=== PATIENT | male | born 1995 | race Caucasian/White ===

== ENCOUNTER 2022-09-05 14:50 | Emergency (ER) | payer OTHER ==
[~2022-09-05] VITALS: Ht 157.5 cm; Wt 56.8 kg
[2022-09-05] MEDS ORDERED: ONDANSETRON HCL 4 MG/2 ML VIAL IV ONE (15:15)
[2022-09-05] MEDS ORDERED: HYDROmorphone HCL 2 MG/ML VL/or syr IV ONE ×3 (15:15→20:15)
[2022-09-05] MEDS ORDERED: SODIUM CHLORIDE 0.9% 1,000 ML IV ONE (15:15)
[2022-09-05 15:50] LABS: Basophils # (auto) 0 10 ^3/uL (0-0.2); Basophils % (auto) 0.5 % (0.0-2.0); Eosinophils # (auto) 0 10 ^3/uL (0-0.8); Eosinophils % (auto) 0.3 % (0.0-7.0); Hematocrit 43.7 % (41.0-53.0); Hemoglobin 14.6 g/dL (13.5-17.5); Lymphocytes # (auto) 1.4 10 ^3/uL (0.4-5.4); Lymphocytes % (auto) 13.9 % (10.0-50.0); Mean Corpuscular Hemoglobin 28.9 pg (28.0-32.0); Mean Corpuscular Hgb Conc. 33.5 g/dL (32.0-36.0); Mean Corpuscular Volume 86.2 fL (80.0-100.0); Monocytes # (auto) 0.6 10 ^3/uL (0-1.3); Monocytes % (auto) 6.4 % (0.0-12.0); Neutrophils # (auto) 7.9 10 ^3/uL (1.6-8.6); Neutrophils % (auto) 78.9 % (37.0-80.0); Nucleated Red Blood Cells % 0.1 %; Red Blood Cells 5.07 10^6/uL (4.5-5.90); Red Cell Distribution Width 15.3 % (11.8-14.3)
[2022-09-05 15:52] LABS: Albumin 4.2 g/dL (3.4-5.0); Calcium 8.9 mg/dL (8.5-10.1); Potassium 3.7 mmol/L (3.5-5.1)
[2022-09-05 15:56] LABS: BUN/Creatinine Ratio 8.3 (10.0-20.0); Bilirubin, Total 0.4 mg/dL (0.2-1.0); Total Protein 7.7 g/dL (6.4-8.2)
[2022-09-05] MEDS ORDERED: KETOROLAC TROMETH 30 MG/ML 1ML VIAL IV ONE (20:15)
[2022-09-05] MEDS ORDERED: KETOROLAC TROMETH 30 MG/ML 1ML VIAL IM ONE (20:45)
[2022-09-05] MEDS ORDERED: HYDROmorphone HCL 2 MG/ML VL/or syr IM ONE (20:45)
[2022-09-05] MEDS ORDERED: HYDR-4798 PO (21:50)
[2022-09-05 22:25] VITALS: BP 99/58
== END 2022-09-05 22:48 | disposition home or self-care (01) ==
LOC: ER 14:50
DX: S82.202A Unspecified fracture of shaft of left tibia, initial encounter for closed fracture (principal); S92.152A Displaced avulsion fracture (chip fracture) of left talus, initial encounter for closed fracture; S92.412A Displaced fracture of proximal phalanx of left great toe, initial encounter for closed fracture; S92.001A Unspecified fracture of right calcaneus, initial encounter for closed fracture; S82.51XA Displaced fracture of medial malleolus of right tibia, initial encounter for closed fracture; F17.290 Nicotine dependence, other tobacco product, uncomplicated; V86.56XA Driver of dirt bike or motor/cross bike injured in nontraffic accident, initial encounter; Y93.55 Activity, bike riding; Y92.89 Other specified places as the place of occurrence of the external cause; Y99.8 Other external cause status
CPT/HCPCS: 29505; 36415; 71045; 73590; 73610; 73630; 80053; 85025; 96361; 96372; 96374; 96375; 96376; 99285; J1170; J1885; J2405; J7030

== ENCOUNTER 2022-09-21 11:26 | Emergency (ER) | payer MEDICAID ==
[~2022-09-21] VITALS: Ht 160 cm; Wt 56.8 kg
[2022-09-21 13:34] VITALS: BP 116/76
== END 2022-09-21 14:48 | disposition home or self-care (01) ==
LOC: ER 11:26
DX: Z48.00 Encounter for change or removal of nonsurgical wound dressing (principal); Z46.89 Encounter for fitting and adjustment of other specified devices
CPT/HCPCS: 29515